=== PATIENT | female | born 1975 | race Two or more races ===

== ENCOUNTER → 2017-02-19 18:20 | Outpatient (CLI) | payer MEDICAID ==
[2015-02-07 15:51] VITALS: BMI 30.2
[~2017-02-19 18:20] MED LIST: HYDROCODONE-APA1 TAB PO
== END | disposition home or self-care (01) ==
LOC: D.MAMMO 15:15
DX: Z12.31 Encounter for screening mammogram for malignant neoplasm of breast (principal)

== ENCOUNTER → 2018-03-19 18:55 | Outpatient (CLI) | payer MEDICAID ==
[2015-02-07 15:51] VITALS: BMI 30.2
== END | disposition home or self-care (01) ==
LOC: D.MAMMO 11:00
DX: Z12.31 Encounter for screening mammogram for malignant neoplasm of breast (principal)

== ENCOUNTER 2018-05-05 08:00 | Outpatient (CLI) | payer MEDICAID ==
[2015-02-07 15:51] VITALS: BMI 30.2
== END 2018-05-05 09:00 | disposition home or self-care (01) ==
LOC: D.MAMMO 08:00
DX: R92.8 Other abnormal and inconclusive findings on diagnostic imaging of breast (principal)

== ENCOUNTER 2019-04-14 08:00 | Outpatient (CLI) | payer MEDICAID ==
[2015-02-07 15:51] VITALS: BMI 30.2
== END 2019-04-14 08:30 | disposition home or self-care (01) ==
LOC: D.MAMMO 08:00
PROVIDERS: ATTEND Nurse Practitioner Women's Health
DX: Z12.31 Encounter for screening mammogram for malignant neoplasm of breast (principal)